=== PATIENT | female | born 2000 | race Caucasian/White ===

== ENCOUNTER 2022-01-07 10:48 | Emergency (ER) | payer BC ==
[~2022-01-07] VITALS: Ht 167.6 cm; Wt 59.0 kg
[2022-01-07] MEDS ORDERED: BUPROPION XL450 MG PO (11:05)
[2022-01-07] MEDS ORDERED: ESCITALOPRA5 MG/5 ML PO (11:05)
== END 2022-01-07 14:26 | disposition home or self-care (01) ==
LOC: EMR PED 10:48
DX: H92.09 Otalgia, unspecified ear (principal); H66.91 Otitis media, unspecified, right ear